=== PATIENT | male | born 1950 | race Caucasian/White ===

== ENCOUNTER 2016-12-01 12:38 | Emergency (ER) | payer OTHER ==
[~2016-12-01] VITALS: Ht 172.7 cm; Wt 115.7 kg
[~2016-12-01 12:38] MED LIST: ALLOPURINOL 30300 M2 PO; ALPHAGAN P10 ML OPHTHALMIC; ASPIR 8181 MG PO; AUGMENTIN 875875 MG PO; CENTRUM MULTIVITAMIN PO; CENTRUM SILVER1 EAC4 PO; COMBIVENT RESPIM4 GM INH; COZAAR 50 MG TA50 M2 PO; ESCITALOPRAM OX10 MG PO; GLUCOPHAGE XR500 MG PO; IRON 100 PLUS1 EACH PO; IRON325 PO; KLOR-CON 1010 MEQ PO; LASIX 20 MG TAB20 MG PO; LEVAQUIN 250 M250 MG PO; LEVAQUIN 750 M750 MG; LEVOTHYROXIN0.075 MG PO; LIPITOR40 MG PO; PACERONE 200 M200 M1 PO; PREDNISONE 5 MG5 M1 PO; PROAIR HFA8.5 GM INH; PROMETHAZINE/C118 ML PO; SYMBICORT160 MCG/4. INH; TRADJENTA5 MG; TRADJENTA5 MG PO; TRIAMTERENE-HC1 EAC3 PO; TYLENOL325 MG PO; VITAMIN D1000 UNI1 PO; Z PACK
[2016-12-01 14:38] LABS: HEMATOCRIT 38.6 % (42.0-52.0); HEMOGLOBIN 12.9 gm/dL (14.0-18.0); MCH 32.6 pg (26.0-34.0); MCHC 33.5 g/dL (28.0-37.0); PLATELET COUNT 161 thou/uL (150-400); RBC 3.98 mil/uL (4.50-6.00); RDW 15.7 % (10.5-14.5)
[2016-12-01 14:39] LABS: MANUAL DIFF YES
[2016-12-01 14:53] LABS: CALCIUM 8.7 mg/dL (8.5-10.1); CREATININE 1.6 mg/dL (0.7-1.3); POTASSIUM 4.7 mmol/L (3.5-5.1)
[2016-12-01 14:59] LABS: ALBUMIN 3.4 g/dL (3.4-5.0); TOTAL BILIRUBIN 0.3 mg/dL (<0.1-1.0); TOTAL PROTEIN 7.1 g/dL (6.4-8.2); URIC ACID* 5.1 mg/dL (2.6-7.2)
[2016-12-01] MEDS ORDERED: PREDNISONE 20 M20 MG PO (15:14)
[2016-12-01] MEDS ORDERED: NORCO 5-325 TA1 EACH PO (15:14)
[2016-12-01 16:09] VITALS: BP 108/68
== END 2016-12-01 16:10 | disposition home or self-care (01) ==
LOC: ER 12:38
PROVIDERS: Emergency Medicine
DX: M19.031 Primary osteoarthritis, right wrist (principal); I25.2 Old myocardial infarction; E11.9 Type 2 diabetes mellitus without complications; E78.5 Hyperlipidemia, unspecified; E03.9 Hypothyroidism, unspecified; I10 Essential (primary) hypertension; I48.91 Unspecified atrial fibrillation; F10.99 Alcohol use, unspecified with unspecified alcohol-induced disorder; Z90.49 Acquired absence of other specified parts of digestive tract; Z88.6 Allergy status to analgesic agent; Z87.891 Personal history of nicotine dependence

== ENCOUNTER → 2017-11-21 | Outpatient (CLI) | payer OTHER ==
[~2017-11-21] MED LIST changes: +NORCO 5-325 TA1 EACH PO; +PREDNISONE 20 M20 MG PO
== END ==
LOC: RAD 13:09
DX: J44.9 Chronic obstructive pulmonary disease, unspecified (principal); J18.9 Pneumonia, unspecified organism; I11.0 Hypertensive heart disease with heart failure; I50.9 Heart failure, unspecified; E11.9 Type 2 diabetes mellitus without complications; E78.5 Hyperlipidemia, unspecified; I42.8 Other cardiomyopathies; G47.33 Obstructive sleep apnea (adult) (pediatric)

== ENCOUNTER → 2018-09-15 | Outpatient (CLI) | payer OTHER | LOC: RAD 13:06 | DX: J98.4 Other disorders of lung (principal); J44.9 Chronic obstructive pulmonary disease, unspecified; Z95.0 Presence of cardiac pacemaker ==

== ENCOUNTER → 2019-03-16 | Outpatient (CLI) | payer OTHER | LOC: RAD 12:20 | DX: J44.9 Chronic obstructive pulmonary disease, unspecified (principal); I11.9 Hypertensive heart disease without heart failure; Z88.8 Allergy status to other drugs, medicaments and biological substances; Z95.0 Presence of cardiac pacemaker ==

== ENCOUNTER → 2021-03-27 | Outpatient (CLI) | payer OTHER ==
[~2021-03-27] MED LIST changes: -ALPHAGAN P10 ML OPHTHALMIC; +ALPHAGAN P15 ML EA. EYE; +COMBIVENT INH; +DIAZEPAM 5 MG5 M1 PO; +ENTRESTO 24 MG1 EACH PO; +ENTRESTO 97 MG1 EACH PO; +FLOMAX0.4 MG PO; +GLIPIZIDE XL2.5 MG PO; +IMDUR 30 MG TAB30 M1 PO; +KLOR-CON M2020 MEQ PO; +LEVO-T100 MCG PO; +METOLAZONE 2.52.5 M1 PO; +MILRINONE-20 MG/100 IV; +MIRALAX17 GM PO; +NITROSTAT0.4 M1 SUBLING; +OZEMPIC1 MG/0.71 SUBQ; +PACERONE200 MG PO; +PREDNISONE 10 M10 MG PO; +SLOW FE142 MG PO; +TOPROL XL25 MG PO; +TORSEMIDE20 MG PO
== END ==
LOC: RAD 12:32
PROVIDERS: ATTEND Internal Medicine Pulmonary Disease
DX: R06.02 Shortness of breath (principal); I51.7 Cardiomegaly; Z95.0 Presence of cardiac pacemaker